=== PATIENT | female | born 1995 | race Caucasian/White ===

== ENCOUNTER → 2020-07-18 | Outpatient (CLI) | payer BC ==
--- NOTE | 2020-07-23 07:48 | REP ---
FIRST TRIMESTER ULTRASOUND: 07/18/2020 Real time sonographic evaluation of gravid uterus performed utilizing transabdominal and endovaginal technique. There is a single living intrauterine gestation with an estimated gestational age of 5 weeks 6 days based on a crown- rump length of 2mm, EDC 03/14/21. Yolk sac is also visualized within the gestational sac. The HR is 114bpm. No subchorionic hemorrhage is seen. The cervix is closed and measures 3.5cm in length. A complex cystic structure of the right ovary probably represents a complex corpus luteum measuring 1.9cm in maximum diameter. MTDD
== END ==
LOC: M WHC 08:19
PROVIDERS: ATTEND Advanced Practice Midwife
DX: Z34.81 Encounter for supervision of other normal pregnancy, first trimester (principal); Z3A.01 Less than 8 weeks gestation of pregnancy

== ENCOUNTER → 2020-09-18 | Outpatient (REF) | payer BC | LOC: M LAB REF 17:33 | PROVIDERS: ATTEND Obstetrics & Gynecology | DX: Z34.82 Encounter for supervision of other normal pregnancy, second trimester (principal) ==

== ENCOUNTER → 2020-10-25 | Outpatient (CLI) | payer BC ==
--- NOTE | 2020-10-27 08:31 | REP ---
INDICATION: ANATOMY COMPARISON: 07/18/2020 TECHNIQUE: Transabdominal obstetrical ultrasound with color Doppler evaluation. FINDINGS: Examination demonstrates a single live intrauterine in breech presentation. motion is identified by technologist. Placenta is noted anterior and grade 1 without evidence for placenta previa or abruption. Amniotic fluid volume is normal. Cervix measures 4.3 cm in length and appears closed.. Gestational age by LMP 20 weeks 4 days with CHAR[place] 03/10/2021. Gestational age by current measurements 20 weeks 2 days with CHAR[place]TE 03/12/2021. FHR equals 158 beats per minute. BPD: 4.4 cm 19 weeks 2 days HC: 17.6 cm 20 weeks 1 day AC: 15.7 cm 20 weeks 6 days FL: 3.3 cm 20 weeks 1 day HL: 3.3 cm 21 weeks 1 day HC/AC: 1.12 Estimated weight 355 grams (38thpercentile). Anatomical assessment demonstrates normal structures including cranium, choroid plexus, cavum, cerebellum/posterior fossa, facial features, lungs, four-chamber heart/ventricular outflow tracts, diaphragm, stomach, cord insertion/three-vessel cord, kidneys/bladder, and extremities. IMPRESSION: Single live intrauterine in breech presentation demonstrating appropriate interval growth. Limited evaluation of the spine noted. Remainder of the anatomical assessment is complete and normal. <Electronically signed by Mendez Finn > 10/27/20 [id number]
== END ==
LOC: M WHC 12:29
PROVIDERS: ATTEND Advanced Practice Midwife
DX: O32.1XX0 Maternal care for breech presentation, not applicable or unspecified (principal); Z3A.20 20 weeks gestation of pregnancy

== ENCOUNTER → 2020-11-13 | Outpatient (CLI) | payer BC ==
--- NOTE | 2020-11-13 17:37 | REP ---
INDICATION: F/U ANATOMY COMPARISON: 10/25/2020 TECHNIQUE: Transabdominal obstetrical ultrasound with color Doppler evaluation. FINDINGS: Examination demonstrates a single live intrauterine in breech presentation. motion is identified by technologist. Placenta is noted anterior and grade 1 without evidence for placenta previa or abruption. Amniotic fluid volume is normal. Cervix appears closed.. Gestational age by LMP 23 weeks 2 days with [place]TE 03/10/2021. Gestational age by current measurements 23 weeks 1 day with [place] 03/11/2021. FHR equals 143 beats per minute. Estimated weight 598 grams (51stpercentile). Anatomical assessment demonstrates normal structures including sacral spine. IMPRESSION: Single live intrauterine in breech presentation demonstrating appropriate interval growth. In conjunction with prior examination anatomical assessment is complete and normal. <Electronically signed by Mendez Finn > 11/13/20 [id number]
== END ==
LOC: M WHC 15:34
PROVIDERS: ATTEND Advanced Practice Midwife
DX: Z36.89 Encounter for other specified antenatal screening (principal); Z3A.23 23 weeks gestation of pregnancy

== ENCOUNTER → 2020-12-13 | Outpatient (CLI) | payer BC ==
[2020-12-13 08:40] LABS: HEMOGLOBIN 13.8 g/dl (12.0-15.5); MEAN CORPUSCULAR HEMOGLOBIN 30.5 pg (27.0-33.0); MEAN CORPUSCULAR HGB CONC 32.1 g/dl (32.0-36.5); MEAN CORPUSCULAR VOLUME 95.1 fl (80.0-96.0); PLATELET COUNT, AUTOMATED 266 10^3/uL (150-450); RED BLOOD COUNT 4.52 10^6/uL (4.00-5.40); WHITE BLOOD COUNT 11.4 10^3/uL (4.0-10.0)
== END ==
LOC: M LAB 07:19
PROVIDERS: ATTEND Advanced Practice Midwife
DX: Z34.02 Encounter for supervision of normal first pregnancy, second trimester (principal); Z3A.00 Weeks of gestation of pregnancy not specified

== ENCOUNTER → 2021-02-14 | Outpatient (REF) | payer BC | LOC: M LAB REF 16:51 | PROVIDERS: ATTEND Advanced Practice Midwife | DX: Z34.03 Encounter for supervision of normal first pregnancy, third trimester (principal) ==

== ENCOUNTER 2021-03-03 00:52 | Inpatient (IN) | payer BC ==
[~2021-03-03] VITALS: Ht 160 cm; Wt 85.3 kg
[2021-03-03] VITALS (10 sets, daily range): BP systolic 104–131; BP diastolic 51–69
[2021-03-03] MEDS ORDERED: ceFAZolin 2 GM/D5W 50 ML IV BAG (J0690 PER 500MG) As Ordered ONE (01:29)
[2021-03-03] MEDS ORDERED: LACTATED RINGER'S 1000 ML IV STA (01:29)
[2021-03-03] MEDS ORDERED: LR 1,000 ML IV SCH ×3 (01:30→03:15)
[2021-03-03] MEDS ORDERED: ceFAZolin SOD 2 GM in IV 1 EA IV ONE (01:30)
[2021-03-03] MEDS ORDERED: BICITRA 30ML SOLN UDC PO ONE (01:30)
[2021-03-03] MEDS ORDERED: BICITRA 30ML SOLN UDC As Ordered ONE (01:30)
[2021-03-03] MEDS ORDERED: PHENYLephrine 500MCG 5ML (100MCG/ML) SYRINGE As Ordered ONE (01:41)
[2021-03-03] MEDS ORDERED: ePHEDrine SULFATE 25 MG/5 ML(5MG/ML) SYRINGE As Ordered ONE (01:41)
[2021-03-03] MEDS ORDERED: OXYTOCIN 30 UNITS IN 0.9% NaCl 500ML IV BAG (J2590) As Ordered ONE (01:41)
[2021-03-03] MEDS ORDERED: PRENTAB9 PO (01:41)
[2021-03-03] MEDS ORDERED: MORPHINE PRES-FREE INJ 10 MG/10 ML VIAL (J2274) As Ordered ONE (01:41)
[2021-03-03 01:44] LABS: HEMATOCRIT 42.6 % (36.0-47.0); HEMOGLOBIN 14.8 g/dl (12.0-15.5); MEAN CORPUSCULAR HEMOGLOBIN 31.6 pg (27.0-33.0); MEAN CORPUSCULAR HGB CONC 34.7 g/dl (32.0-36.5); PLATELET COUNT, AUTOMATED 244 10^3/uL (150-450); RED BLOOD COUNT 4.68 10^6/uL (4.00-5.40); WHITE BLOOD COUNT 18.9 10^3/uL (4.0-10.0)
--- NOTE | 2021-03-03 01:45 | HPEPDOC ---
Obstetrical History & Physical General Date of Admission March 03, 2021 at 01:24 History of Present Illness 25 yo G1 female at 39 0/7 weeks by LMP c/w ultrasound presents with regular cont ractions. She had leakage of fluid per vagina prior to the contractions increasing in intensity. Pt of [facility]. Information Provided By: Patient Care Care: Good Care Dating Final EDC: March 10, 2021 Final EDC by: LMP, 1st trimester (US) Past Medical History Past Obstetrical History : Past Obstetrical History: Primgravida Past Medical History Medical History none Surgical History: Denies/None Family History Significant Family History: No pertinent family hx Social History Marital Status: Single Family situation: Spouse/partner home Psychosocial History: No pertinent psych hx * Smoker: non-smoker Allergies Coded Allergies: No Known Allergies (Unverified , 03/03/21) Physical Examination Physical Examination GENERAL: Alert and oriented times three. BREAST: . ABDOMEN: Gravid and non-tender to touch. FETUS: Is vertex (VTX) by sterile vaginal examination (SVE), fetus is vertex (VTX) by Ernie. HEART RATE: Regular rate and rhythm. LUNGS: Clear to auscultation (CTA). EXTREMITIES: No edema. No clonus. Deep tendon reflexes (DTRs) + . Pertinent Laboratoy Data Blood Type: A+ Vaginal Examination Dilation: 9 cm Effacement: 100% Station: -1 Presentation: Breech presentation Assessment Variability: Moderate Accelerations: Positive Decelerations: None Tocometer Contractions: Yes Frequency: regular, every 1-3 min. Strength: palpated as strong Assessment/Plan Assessment Pt is a 25-year-old (G)1 para (P)0 at 39+0 weeks by LMP c/w -week ultrasound Presents in active labor with breech presentation. Plan Admit and orient. Gandy Dancer and consent. Plan for breech presentation in active labor antibiotics ordered Plan ot proceed LAINE MALATHI SHEN MD March 03, 2021 01:45
[2021-03-03] MEDS ORDERED: NALOXONE INJ 0.4MG/1ML VIAL (J2310 PER 1MG) IV PRN ×2 (02:00)
[2021-03-03] MEDS ORDERED: METOCLOPRAMIDE INJ 10MG/2ML VIAL (J2765 PER 1) IV PRN ×2 (02:00→03:15)
[2021-03-03] MEDS ORDERED: diphenhydrAMINE 50MG/ML VIAL (J1200) IV PRN (02:00)
[2021-03-03] MEDS ORDERED: ONDANSETRON 4MG/2ML VIAL IV PRN ×3 (02:00→03:15)
[2021-03-03] MEDS ORDERED: NALBUPHINE HCL 10 MG/ML AMP (J2300) IV PRN (02:00)
[2021-03-03] MEDS ORDERED: KETOROLAC 60MG 2ML VIAL As Ordered ONE (02:20)
[2021-03-03] MEDS ORDERED: ONDANSETRON 4MG/2ML VIAL As Ordered ONE (02:20)
[2021-03-03] MEDS ORDERED: PERCOCET 5MG/325MG TAB PO PRN ×3 (02:40→03:15)
[2021-03-03] MEDS ORDERED: RHOGAM 300 MCG (1500 IU) INJ (J2790) IM SCH (02:40)
[2021-03-03] MEDS ORDERED: MEASLES,MUMPS,RUBELLA VACCINE INJ (MMR-II) (90707) SC SCH (02:40)
[2021-03-03] MEDS ORDERED: OXYTOCIN DRIP 30 UNITS in IV 1 EA IV SCH (02:40)
[2021-03-03] MEDS ORDERED: SIMETHICONE 80MG CHEW TAB PO PRN (02:40)
--- NOTE | 2021-03-03 02:50 | ROOPDOC ---
[facility] Report Of Operation Report of Operation DATE OF PROCEDURE: 03/03/21 Report of operation Preoperative diagnosis: 39 0/7 weeks, breech, labor Postoperative diagnosis: same Procedure: Primary low transverse section Surgeon: Malathi Shen M.D. Asst.: Yair Longoria EBL: 500 ml. Urine output: 100 mL's. Findings: 7 lbs. 1 oz. female , eduar breech, Apgars 9 and 9; normal uterus, fallopian tubes, ovaries. Operative summary: Patient taken to the operating room where spinal anesthesia was induced. She was prepped draped sterile fashion in the supine position. A Kelley catheter was placed. A Pfannenstiel skin incision was made with scalpel. Fascia was incised and extended bilaterally. The peritoneal cavity was entered. A Mobius retractor was placed. A bladder flap was created. A curvilinear incision was made in lower uterine segment until Clear fluid was noted. The incision was extended manually. The infant was delivered from the breech position without difficulty. Cord was double clamped and cut. The infant was handed waiting nurses. . The placenta was expressed. Uterus was closed with O- Vicryl in a running locked fashion. A second imbricating layer of Vicryl was placed. Peritoneum was closed with 2-0 Vicryl a running fashion. Fascia was closed with 0 Vicryl in running fashion. Skin was closed 4-0 Monocryl subcuticular sutures. Sponge, instrument and needle counts were correct. Chester Longoria MD, assisted with all aspects of the procedure. He helped each layer of the incision and deliver the fetus. MALATHI SHEN MD March 03, 2021 02:50
[2021-03-03] MEDS ORDERED: fentaNYL 100 MCG/2 ML INJECTION (J3010) IV PRN (03:15)
[2021-03-03] MEDS: PRENATAL VITAMINS CHEWABLE TABLET PO SCH (09:37)
[2021-03-03] MEDS: KETOROLAC 30 MG/ML 1ML VIAL IV SCH ×3 (09:38→20:57)
[2021-03-04] VITALS (7 sets, daily range): BP systolic 114–135; BP diastolic 59–78
[2021-03-04] MEDS: IBUPROFEN 800 MG TAB PO SCH ×3 (05:24→22:16)
[2021-03-04 07:30] LABS: HEMATOCRIT 36.8 % (36.0-47.0); MEAN CORPUSCULAR HEMOGLOBIN 31.7 pg (27.0-33.0); MEAN CORPUSCULAR HGB CONC 33.4 g/dl (32.0-36.5); MEAN CORPUSCULAR VOLUME 94.8 fl (80.0-96.0); PLATELET COUNT, AUTOMATED 202 10^3/uL (150-450); RED BLOOD COUNT 3.88 10^6/uL (4.00-5.40); WHITE BLOOD COUNT 13.2 10^3/uL (4.0-10.0)
[2021-03-04 07:35] LABS: HEMOGLOBIN 12.3 g/dl (12.0-15.5)
--- NOTE | 2021-03-04 08:20 | IPNPDOC ---
Progress Note Date of Service: March 04, 2021 Day#: 1 Progress Note SUBJECT: Alyx is a 25-year-old female who had a primary section after she presented in active labor and found to be breech. She reports she has been ambulating and voiding without any issues. States her pain has been managed. Reports minimal vaginal bleeding. OBJECTIVE: VITAL SIGNS: Within normal limits, afebrile. Alert and oriented times three. Sitting up in bed eating. Breath sounds clear to auscultation. Abdomen: Fundus firm at U. Minimal lochia. ASSESSMENT: Day 1 postoperative PLAN: 1. Continue supportive nursing care and pain management. 2. Patient to have saline lock removed. 3. Patient to ambulate and shower today. [facility] Vital Signs/I&O Vital Signs Date Time Temp Pulse Resp B/P (MAP) Pulse Ox O2 Delivery O2 Flow Rate FiO2 03/04/21 06:00 98.1 106 18 135/61 (85) 96 Room Air I&O- Last 24 Hours up to 6 AM 03/04/21 06:00 Intake Total 925 ml Output Total 1300 ml Balance -375 ml Laboratory Data 24H LABS Laboratory Tests 2 03/03/21 11:42: Serology Scanned Report Hepatitis B Testing 03/04/21 06:59: Nucleated Red Blood Cells % (auto) 0.0 CBC/BMP Laboratory Tests 03/04/21 06:59 MARY LOU DA SILVA CNM March 04, 2021 08:20
[2021-03-04] MEDS ORDERED: BOOSTRIX/ADACEL VACCINE (DIPHTH/PERTUSS/ACELL/TETANUS) 0.5ML SYR IM ONE (09:00)
[2021-03-04] MEDS: PRENATAL VITAMINS CHEWABLE TABLET PO SCH (09:48)
[2021-03-04] MEDS ORDERED: IBUP80TA PO (14:10)
[2021-03-04] MEDS ORDERED: OXYC1TAB23 PO (14:10)
[2021-03-05 02:00] VITALS: BP 131/63
[2021-03-05] MEDS: IBUPROFEN 800 MG TAB PO SCH (04:38)
[2021-03-05 06:00] VITALS: BP 120/75
[2021-03-05] MEDS ORDERED: COLA1TAB PO (08:32)
--- NOTE | 2021-03-05 08:37 | IPNPDOC ---
Progress Note Date of Service: March 05, 2021 Day#: 2 Progress Note PPD 2 SUBJECT: Alyx is a 25yo [id number] s/p uncomplicated PLTCS for breech presentation in active labor at term, doing well post-op/ day # 2. She has been ambulating, voiding spontaneously without issue and tolerating regular diet. Breast feeding without issue. Reports lochia is like a normal period. No f/c/n/v/CP/SOB. OBJECTIVE: VITAL SIGNS: Within normal limits, afebrile. Alert and oriented times three. Abdomen: Fundus firm at U-2. Soft, appropriately tender to palpation without rebound/guarding. Pfannenstiel incision covered by clean/dry optifoam dressing. Extremities: no pain with palpation of calves Labs: pre-op H/H: 14.8/42.6 post-op H/H: 12.3/36.8 ASSESSMENT: Alyx is a 25yo [id number] s/p uncomplicated PLTCS for breech presentation in active labor at term, doing well post-op/ day # 2. Vitals within normal limits, afebrile, hemodynamically stable with no evidence of infection. PLAN: 1. Discharge to home today. 2. Motrin and percocet for pain. Colace for bowel regimen. 3. Encourage breast feeding and ambulation. 4. Regular diet 5. Routine incision check in 2 weeks in clinic 6. Discussed return precautions at length. Remove optifoam dressing in 1 week, keep incision clean and dry 7. Vaginal rest and no heavy lifting 6 weeks Kristy Ovalle MD VS, I&O, 24H, Fishbone Vital Signs/I&O Vital Signs Date Time Temp Pulse Resp B/P (MAP) Pulse Ox O2 Delivery O2 Flow Rate FiO2 03/05/21 06:00 97.9 85 16 120/75 (90) 98 Room Air I&O- Last 24 Hours up to 6 AM 03/05/21 05:59 Intake Total 600 ml Balance 600 ml Kristy Ovalle MD March 05, 2021 08:37
--- NOTE | 2021-03-05 08:47 | DS.PDOC ---
Discharge Summary General Date of Admission March 03, 2021 at 01:24 Date of Discharge March 05, 2021 Attending Physician: MALATHI SHEN MD Discharge Summary PROCEDURES PERFORMED DURING STAY: primary low transverse section ADMITTING DIAGNOSES: 1. breech presentation at term in active labor DISCHARGE DIAGNOSES: 1. breech presentation at term in active labor COMPLICATIONS/CHIEF COMPLAINT: ?ROM. HISTORY OF PRESENT ILLNESS/HOSPITAL COURSE: Alyx is a 25yo [id number] s/p uncomplicated PLTCS for breech presentation in active labor at term, doing well post-op/ day # 2. Vitals within normal limits, afebrile, hemodynamically stable with no evidence of infection. DISCHARGE MEDICATIONS: Please see below. ALLERGIES: Please see below. PHYSICAL EXAMINATION ON DISCHARGE: VITAL SIGNS: Within normal limits, afebrile. Alert and oriented times three. Abdomen: Fundus firm at U-2. Soft, appropriately tender to palpation without rebound/guarding. Pfannenstiel incision covered by clean/dry optifoam dressing. Extremities: no pain with palpation of calves LABORATORY DATA: Please see below. pre-op H/H: 14.8/42.6 post-op H/H: 12.3/36.8 DIET: regular DISPOSITION: home DISCHARGE PLAN/INSTRUCTIONS: 1. Discharge to home today. 2. Motrin and percocet for pain. Colace for bowel regimen. 3. Encourage breast feeding and ambulation. 4. Regular diet 5. Routine incision check in 2 weeks in clinic 6. Discussed return precautions at length. Remove optifoam dressing in 1 week, keep incision clean and dry 7. Vaginal rest and no heavy lifting 6 weeks DISCHARGE CONDITION: Stable TIME SPENT ON DISCHARGE: Greater than 30 minutes. Kristy Ovalle MD Vital Signs/I&Os Vital Signs Date Time Temp Pulse Resp B/P (MAP) Pulse Ox O2 Delivery O2 Flow Rate FiO2 03/05/21 06:00 97.9 85 16 120/75 (90) 98 Room Air I&O- Last 24 Hours up to 6 AM 03/05/21 05:59 Intake Total 600 ml Balance 600 ml Discharge Medications Scheduled Ibuprofen (Ibuprofen) 800 Mg Tablet, 800 MG PO Q8H No.137/Iron/Folic Acd ( Vitamin Tablet) 1 Each Tablet, 1 TAB PO DAILY, (Reported) Sennosides/Docusate Sodium (Colace 2-in-1 Tablet) 1 Each Tablet, 1 TAB PO BID Scheduled PRN Oxycodone HCl/Acetaminophen (Oxycodone-Acetaminophen 5-325) 1 Each Tablet, 1 TAB PO TIDP PRN for pain Allergies Coded Allergies: No Known Allergies (Unverified , 03/03/21) Kristy Ovalle MD March 05, 2021 08:47
[2021-03-05] MEDS: PRENATAL VITAMINS CHEWABLE TABLET PO SCH (08:53)
[2021-03-05] MEDS ORDERED: BOOSTRIX/ADACEL VACCINE (DIPHTH/PERTUSS/ACELL/TETANUS) 0.5ML SYR IM ONE (09:00)
== END 2021-03-05 10:40 | disposition home or self-care (01) | DRG 540 ==
LOC: M LDO 00:52 → M LDI 01:24 → M OBS 04:08
PROVIDERS: ADMIT Specialist; ATTEND Specialist
PROC: 10D00Z1 Extraction of Products of Conception, Low, Open Approach (ICD-10-PCS; principal; 2021-03-03 01:51)
DX: O32.1XX0 Maternal care for breech presentation, not applicable or unspecified (principal); Z37.0 Single live birth; Z3A.39 39 weeks gestation of pregnancy

== ENCOUNTER → 2022-03-13 | Outpatient (REF) | payer BC ==
[~2022-03-13] MED LIST: COLA1TAB PO; IBUP80TA PO; OXYC1TAB23 PO; PRENTAB9 PO
== END ==
LOC: M LAB REF 15:42
PROVIDERS: ATTEND Physician Assistant
DX: J02.9 Acute pharyngitis, unspecified (principal)